=== PATIENT | female | born 1965 | race Caucasian/White ===

== ENCOUNTER → 2016-03-29 | Outpatient (CLI) | payer OTHER ==
[~2016-03-29] MED LIST: CALC600T9 PO; CHOL1TAB42 PO; JUICE PLUS PO; KRIL1CAP3 PO; LYSI100010 PO; PHEN-876 PO; PROB1TAB16 PO; SULF800T23 PO
== END | disposition home or self-care (01) ==
LOC: C.MAMM 09:55
PROVIDERS: ATTEND Internal Medicine Geriatric Medicine
DX: M85.80 Other specified disorders of bone density and structure, unspecified site (principal)

== ENCOUNTER → 2016-06-07 | Outpatient (CLI) | payer OTHER ==
--- NOTE | 2016-06-08 15:28 | MAMMOGRAPHY REPORT ---
BILATERAL DIGITAL SCREENING MAMMOGRAM TOMOSYNTHESIS WITH CAD: 06/07/2016 CLINICAL HISTORY: Routine screening. TECHNIQUE: Breast tomosynthesis in addition to standard 2D mammography was performed. Current study was also evaluated with a Computer Aided Detection (CAD) system. COMPARISON: Comparison is made to exams dated: 06/05/2015 mammogram, 03/20/2014 ultrasound, 03/20/2014 m ammogram, 06/07/2013 ultrasound, 02/05/2013 aspiration, and 01/18/2013 ultrasound - [facility]. BREAST COMPOSITION: The tissue of both breasts is heterogeneously dense, which may obscure small ma sses. FINDINGS: There are very faint punctate microcalcifications scattered bilaterally. No new suspiciou s mass, architectural distortion or cluster of microcalcifications is seen. IMPRESSION: ACR BI-RADS CATEGORY 1: NEGATIVE 1. Stable bilateral mammograms, without mammographic evidence of malignancy. A 1 year screening maddison mogram is recommended. 2. Clear nipple discharge was elicited from the right breast during today's mammographic compressio n. Based on prior reports including a diagnostic mammogram and ultrasound performed in 2014, simila r clear nipple discharge was elicited in the past with compression. Clinical follow-up is again rec ommended to assess if the nipple discharge is spontaneous or has possibly increased. The patient will receive written notification of the results. Approximately 10% of breast cancers are not detected with mammography. A negative mammographic repor t should not delay biopsy if a clinically suggestive mass is present. Monica Arthur M.D. ay/:06/07/2016 22:46:50 Race Car Mechanic: Amira Taylor, [facility] letter sent: Normal 1/2 BI-RADS Code: ACR BI-RADS Category 1: Negative
== END | disposition home or self-care (01) ==
LOC: C.MAMM 10:50
PROVIDERS: ATTEND Obstetrics & Gynecology
DX: Z12.31 Encounter for screening mammogram for malignant neoplasm of breast (principal); N64.52 Nipple discharge

== ENCOUNTER → 2016-06-25 | Outpatient (CLI) | payer OTHER ==
[2016-06-25 18:53] LABS: BLOOD UREA NITROGEN 15 mg/dl (7-18); BUN/CREATININE RATIO 20.4 (10-20); CALCIUM 9.7 mg/dl (8.5-10.1); CARBON DIOXIDE 30 mmol/L (21-32); CHLORIDE 106 mmol/L (98-107); CREATININE 0.72 mg/dl (0.60-1.20); GLUCOSE 90 mg/dl (70-99); POTASSIUM 4.2 mmol/L (3.5-5.1); SODIUM 140 mmol/L (136-145)
[2016-06-25 19:06] LABS: CHOLESTEROL 205 mg/dl (0-200); CHOLESTEROL/HDL RATIO 2.4; HDL CHOLESTEROL 84 mg/dl; LDL CHOLESTEROL CALCULATED 104 mg/dl; TRIGLYCERIDES 86 mg/dl (0-150); VERY LOW DENSITY LIPOPROT CALC 17 mg/dl
[2016-06-29 21:27] LABS: GLIADIN DEAMIDATED IgA AB 6 UNITS (<20); GLIADIN DEAMIDATED IgG AB 3 UNITS (<20); RETICULIN IgA AB Negative (Negative)
== END | disposition home or self-care (01) ==
LOC: C.LABBC 12:18
PROVIDERS: ATTEND Physician Assistant Medical
DX: Z00.00 Encounter for general adult medical examination without abnormal findings (principal); M81.0 Age-related osteoporosis without current pathological fracture; K90.0 Celiac disease

== ENCOUNTER → 2016-08-13 | Outpatient (CLI) | payer OTHER ==
--- NOTE | 2016-08-13 12:30 | MAMMOGRAPHY REPORT ---
UNILATERAL LEFT DIGITAL DIAGNOSTIC MAMMOGRAM TOMOSYNTHESIS WITH CAD AND TARGETED LEFT ULTRASOUND: 07/17 CLINICAL HISTORY: The patient reports intermittent left nipple inversion for approximately 2 months. She notes the inversion when wearing a bra or a tightfitting shirt. She denies any spontaneous or b loody nipple discharge. She denies any palpable lumps. TECHNIQUE: Breast tomosynthesis in addition to standard 2D mammography was performed. Current study was also evaluated with a Computer Aided Detection (CAD) system. Left CC and MLO 2-D and tomosynthes is images and spot magnification left CC and ML views were obtained. COMPARISON: Comparison is made to exams dated: 06/07/2016 mammogram, 06/05/2015 mammogram, 03/20/2014 ul trasound, 03/20/2014 mammogram, 06/07/2013 ultrasound, and 02/05/2013 aspiration - [facility]. BREAST COMPOSITION: The tissue of the left breast is heterogeneously dense, which may obscure small masses. FINDINGS: There are no suspicious masses, calcifications, or areas of architectural distortion noted in the left breast. There has been no significant interval change compared to prior exams. Spot ma gnification views of the left subareolar breast demonstrate no suspicious masses or calcifications. Scattered benign-appearing calcifications are not significantly changed. Targeted ultrasound was performed of the left subareolar breast. Sonographically normal tissue is se en, without evidence of a mass or other suspicious sonographic abnormality. IMPRESSION: ACR BI-RADS CATEGORY 2: BENIGN, TARGETED ULTRASOUND ACR BI-RADS CATEGORY 2: BENIGN No suspicious mammographic or sonographic abnormality to explain intermittent left nipple inversion. There is no mammographic or targeted sonographic evidence of malignancy. Recommend clinical follow- up, and recommend routine bilateral screening mammograms which are due May 2017. The patient has been verbally notified of the results. Approximately 10% of breast cancers are not detected with mammography. A negative mammographic report should not delay biopsy if a clinically suggestive mass is present. Shelly Batista M.D. /:08/13/2016 09:49:55 Boiler Welder: Amira Taylor [facility] letter sent: Normal 1/2 BI-RADS Code: ACR BI-RADS Category 2: Benign Ultrasound BI-RADS: ACR BI-RADS Category 2: Benign
== END | disposition home or self-care (01) ==
LOC: C.MAMM 09:13
PROVIDERS: ATTEND Physician Assistant
DX: N64.59 Other signs and symptoms in breast (principal)

== ENCOUNTER → 2016-10-12 | Outpatient (CLI) | payer OTHER ==
[~2016-10-12] MED LIST changes: +GADAVIST IV PRN
--- NOTE | 2016-10-13 07:56 | MAMMOGRAPHY REPORT ---
BREAST MRI OF BOTH BREASTS : 10/12/2016 CLINICAL HISTORY: 50-year-old woman with reported left breast nipple discharge for 6 months and left breast inverted nipple for 2-3 months also occasional pain in the left breast. COMPARISON: Comparison is made to exams dated: 08/13/2016 mammogram, 06/07/2016 mammogram, 06/05/2015 m ammogram, 03/20/2014 ultrasound, 03/20/2014 mammogram, and 06/07/2013 ultrasound - [facility]. TECHNIQUE: Using a 1.5 Shanelle magnet and dedicated breast coil, multisequence axial images were obtain ed through the breasts. After uneventful IV administration of 5 mL of Gadavist, dynamic multiphase c ontrast-enhanced axial images, and sagittal postcontrast were obtained. Temporal subtraction axial i mages and 3-D MIP images are provided. Everything was then reviewed on a 3-D workstation, [employer]. FINDINGS: Right breast: There is glnb-af-xtwaxgeq background parenchymal enhancement, with numerous scattered r ound and oval foci of enhancement as well as scattered cysts throughout the right breast. There is n o dominant suspicious enhancing mass, non-mass enhancement, obvious architectural distortion or suspi cious kinetics in the right breast. No focal skin thickening or nipple retraction. The retromammary fat is intact. No right axillary lymphadenopathy. Left breast: There is mild to moderate background parenchymal enhancement, with numerous scattered ro und and oval foci of enhancement as well as scattered cysts throughout the left breast. There is a l obulated and circumscribed enhancing 8 x 5 mm mass with prominent non-enhancing internal septum in th e middle one third of the retroareolar left breast versus 3:00 middle one third of the breast. (This is best seen on axial page 55/116). This demonstrates a small amount of plateau kinetics and is T2 hyperintense, suggesting a benign fibroadenoma. No other suspicious enhancing mass, non-mass enhance ment, obvious architectural distortion or suspicious kinetics are seen in the left breast. No focal skin thickening or nipple retraction. No enhancing mass identified within the nipple. The retromamm adams fat is intact. No suspicious left axillary lymphadenopathy. There is evidence of prior surgery along the left anterior chest wall in the approximate 6:00 and 7:0 0 far inferior axes. There is deformity of a rib and defect in the pectoralis musculature. IMPRESSION: ACR-BI-RADS CATEGORY 3: PROBABLY BENIGN 1. No suspicious masses or other abnormality to suggest a cause of left intermittent nipple retracti on. No obvious intraductal mass or asymmetric duct ectasia is seen in the left breast, to explain le ft-sided nipple discharge. Therefore, clinical follow-up is recommended with cytology of the fluid a nd consultation with a breast surgeon may be useful. 2. There is a benign appearing 8 x 5 mm lobulated and circumscribed mass with nonenhancing internal septum in the retroareolar versus 3:00 middle one third of the left breast that most likely represent s a benign fibroadenoma. Review of prior breast ultrasounds did not demonstrate any solid mass in th is location within the left breast to confirm stability. Therefore, a short interval follow-up breas t MRI is recommended in 6 months to ensure stability. 3. Scattered cysts and background parenchymal enhancement of the right breast, without MRI evidence of malignancy. 4. No suspicious axillary adenopathy bilaterally. The patient will receive written notification of the results. Monica Arthur M.D. ay/:10/12/2016 22:23:35 Research And Development Technician: power bender operator, [facility] letter sent: Follow Up Recommended 3 BI-RADS Code: ACR-BI-RADS Category 3: Probably Benign
== END | disposition home or self-care (01) ==
LOC: C.MRI 11:59
PROVIDERS: ATTEND Surgery
DX: N64.52 Nipple discharge (principal); N64.59 Other signs and symptoms in breast; N63 Unspecified lump in breast; N60.01 Solitary cyst of right breast

== ENCOUNTER → 2016-10-26 | Day surgery (SDC) | payer OTHER ==
[2016-10-12 14:54] VITALS: Ht 152.4 cm; Wt 52.7 kg
[~2016-10-26] VITALS: Ht 152.4 cm; Wt 52.7 kg
[~2016-10-26] MED LIST changes: -GADAVIST IV PRN; +LIDOCAINE HCL 2% 2 ML VIAL (20MG/ML) ONE; -PHEN-876 PO; +PROPOFOL IV EMULSION 10 MG/ML 20 ML VIAL IV ONE; +SODIUM CHLORIDE 0.9% 500ML 500 ML IV ONE; -SULF800T23 PO
[2016-10-26 10:08] VITALS: TEMP 36.6
--- NOTE | 2016-10-26 10:16 | Endo History and Physical ---
History & Physical Date of Service: Oct 26, 2016. Chief Complaint: Screening Referring Physician: Johny Cain History of Present Illness 50 yo CF who presents for screening colonoscopy. Past Surgical History Hx Cardiac Surgery: No Hx Internal Defibrillator: No Hx Pacemaker: No Hx Abdominal Surgery: No Hx of Implantable Prosthesis: No Hx Post-Op Nausea and Vomiting: No Hx Cancer Surgery: No Hx Thoracic Surgery: No Hx Orthopedic: No Hx Urinary Tract Surgery: No Family History IBD Social History Smoking Status: Never Smoker Hx Substance Use: No Hx Alcohol Use: No Allergies Coded Allergies: No Known Allergies (Unverified , NONE, 10/12/16) Current Medications Reported Home Medications Medications Dose Route/Sig Max Daily Dose Days Date Category Lysine (Lysine Hcl) 1,000 Mg Tab 1 Tab PO QAM 10/12/16 Reported [Juice Plus] 1 Dose PO DAILY 10/12/16 Reported Probiotic (Probiotic Product) 1 Tab Tab 1 Tab PO QAM 10/12/16 Reported Krill Oil 1 Cap Cap 1 Cap PO QPM 10/12/16 Reported Vitamin D (Cholecalciferol) 5,000 Unit Tab 1 Tab PO QPM 10/12/16 Reported Calcium + D (Calcium Carbonate-Vitamin D) 1 Tab Tab 1 Tab PO QAM 10/12/16 Reported Vital Signs Weight (Kilograms): 52.73 Height (Feet): 5 Height (Inches): 0 Date Time Temp Pulse Resp B/P (MAP) Pulse Ox O2 Delivery O2 Flow Rate FiO2 10/26/16 10:08 36.6 85 18 83/58 (66) 99 Room Air Physical Exam General Appearance: WD/WN, no apparent distress Respiratory/Chest: Auscultation: breath sounds normal Cardiovascular: Heart Auscultation: RRR Abdomen: Bowel Sounds: normal Inspection & Palpation: soft, non-distended, no tenderness, guarding & rebound Assessment and Plan Assessment: 50 yo CF who presents for screening colonoscopy. Plan: Proceed with colonoscopy.
--- NOTE | 2016-10-26 10:38 | Discharge Instructions ---
Endoscopy Patient Instructions Date / Procedure(s) Performed Oct 26, 2016. Colonoscopy Allergy Information Coded Allergies: No Known Allergies (Unverified , NONE, 10/12/16) Discharge Date / Findings Oct 26, 2016. Internal hemorrhoids Medication Instructions OK to resume all medications today as prescribed Reported Home Medications Medications Dose Route/Sig Max Daily Dose Days Date Category Lysine (Lysine Hcl) 1,000 Mg Tab 1 Tab PO QAM 10/12/16 Reported [Juice Plus] 1 Dose PO DAILY 10/12/16 Reported Probiotic (Probiotic Product) 1 Tab Tab 1 Tab PO QAM 10/12/16 Reported Krill Oil 1 Cap Cap 1 Cap PO QPM 10/12/16 Reported Vitamin D (Cholecalciferol) 5,000 Unit Tab 1 Tab PO QPM 10/12/16 Reported Calcium + D (Calcium Carbonate-Vitamin D) 1 Tab Tab 1 Tab PO QAM 10/12/16 Reported Provider Instructions Activity Restrictions - No exercising or heavy lifting for 24 hours. - Do not drink alcohol the day of the procedure. - Do not drive a car or operate machinery until the day after the procedure. - Do not make any important decisions or sign important papers in 24 hours after the procedure. Following Day: - Return to full activity which may include returning to work/school. Diet Start your diet with liquids and light foods (jello, soup, juice, toast). Then eat your usual diet if not nauseated. Treatment For Common After Affects For mild abdominal pain, bloating, or excessive gas: - Rest - Eat lightly - Lie on right side Follow-Up Information Follow-up with Johny Cain as scheduled Anesthesia Information What You Should Know You have had a procedure that required some medicine to reduce anxiety and discomfort. This treatment is called moderate sedation. After receiving the treatment, you may be sleepy, but you will be able to breathe on your own. The effects of the treatment may last for several hours. Follow these instructions along with Activity/Diet recommendations noted above: * Do NOT do anything where dizziness or clumsiness would be dangerous. * Rest quietly at home today, then you can be up and about tomorrow. * Have a responsible person stay with you the rest of today. * You may have had an I.V. today. If so, you may take the dressing off later today. Recommendations Call your doctor if: * Trouble breathing * Continuous vomiting for more than 24 hours * Temperature above 101 degrees * Severe abdominal pain or bloating * Pain not relieved by pain medicine ordered * There is increased drainage or redness from any incision * A large amount of rectal bleeding greater than 2-3 tablespoons. (If you had a polyp/s removed or have hemorrhoids, a small amount of blood - from the rectum is to be expected.) * You have any unanswered questions or concerns. IN THE EVENT OF A SERIOUS EMERGENCY, GO TO THE NEAREST EMERGENCY ROOM Your discharge instructions were prepared by provider Urbano Castro. Patient Instructions Signature Page Kriss Phelps Patient (or Guardian) Signature/Date: I have read and understand the instructions given to me by my caregivers. Caregiver/RN/Doctor Signature/Date: The above-named patient and/or guardian has received patient instructions on this date. + Original Patient Signature Page (only) stays with chart. Please make copy for patient.
--- NOTE | 2016-10-26 10:43 | GI REPORT ---
Procedure Date: 10/26/2016 10:19 AM Procedure: Colonoscopy Indications: Screening for colorectal malignant neoplasm Medicines: Monitored Anesthesia Care Complications: No immediate complications. Estimated Blood Loss: Estimated blood loss: none. Procedure: Pre-Anesthesia Assessment: - Prior to the procedure, a History and Physical was performed, and patient medications and allergies were reviewed. The patient's tolerance of previous anesthesia was also reviewed. The risks and benefits of the procedure and the sedation options and risks were discussed with the patient. All questions were answered, and informed consent was obtained. Prior Anticoagulants: The patient has taken no previous anticoagulant or antiplatelet agents. ASA Grade Assessment: II - A patient with mild systemic disease. After reviewing the risks and benefits, the patient was deemed in satisfactory condition to undergo the procedure. After I obtained informed consent, the scope was passed under direct vision. Throughout the procedure, the patient's blood pressure, pulse, and oxygen saturations were monitored continuously. The Scope was introduced through the anus and advanced to the terminal ileum. The colonoscopy was performed without difficulty. The patient tolerated the procedure well. The quality of the bowel preparation was good. The terminal ileum, ileocecal valve, appendiceal orifice, and rectum were photographed. Findings: Non-bleeding internal hemorrhoids were found during retroflexion. The hemorrhoids were small. The exam was otherwise without abnormality. Impression: - Non-bleeding internal hemorrhoids. - The examination was otherwise normal. - No specimens collected. Recommendation: - Resume previous diet. - Continue present medications. - Repeat colonoscopy in 10 years for surveillance. - Return to primary care physician as previously scheduled. Urbano Castro DO 10/26/2016 10:42:51 AM This report has been signed electronically. Note Initiated On: 10/26/2016 10:19 AM I attest to the content of the Intraoperative Record and orders documented therein, exceptions below
[2016-10-26 11:07] VITALS: BP 97/62; PULSE 67; O2SAT 98
--- NOTE | 2016-10-26 12:43 | Anesthesiology Progress Note ---
Anesthesia Post Op Note Date & Time Oct 26, 2016 at 12:43 Vital Signs Pain Intensity: 0 Vital Signs Past 12 Hours Date Time Temp Pulse Resp B/P (MAP) Pulse Ox O2 Delivery O2 Flow Rate FiO2 10/26/16 11:07 67 20 97/62 (74) 98 Room Air 10/26/16 10:52 66 20 88/60 (69) 97 Room Air 10/26/16 10:37 80 18 75/49 (58) 97 Room Air 10/26/16 10:18 97/68 (78) 10/26/16 10:08 36.6 85 18 83/58 (66) 99 Room Air Notes Mental Status: alert / awake / arousable, participated in evaluation Pt Amnestic to Procedure: Yes Nausea / Vomiting: adequately controlled Pain: adequately controlled Airway Patency, RR, SpO2: stable & adequate BP & HR: stable & adequate Hydration State: stable & adequate Anesthetic Complications: no major complications apparent
== END | disposition home or self-care (01) ==
LOC: C.GI 09:44
PROVIDERS: ATTEND Internal Medicine
DX: Z12.11 Encounter for screening for malignant neoplasm of colon (principal); K64.8 Other hemorrhoids; Z83.79 Family history of other diseases of the digestive system